=== PATIENT | female | born 1980 | race Caucasian/White ===

== ENCOUNTER 2018-10-31 11:02 | Outpatient (CLI) | payer MEDICAID | END 2018-10-31 23:59 | disposition home or self-care (01) | LOC: CFH 11:02 | PROVIDERS: ATTEND Family Medicine | DX: N64.4 Mastodynia (principal) | CPT/HCPCS: 77066; G0279 ==

== ENCOUNTER → 2019-12-10 | Outpatient (CLI) | payer MEDICAID | END | disposition home or self-care (01) | LOC: CFH 13:52 | PROVIDERS: ATTEND Family Medicine | DX: Z12.31 Encounter for screening mammogram for malignant neoplasm of breast (principal); N63.13 Unspecified lump in the right breast, lower outer quadrant | CPT/HCPCS: 76641; 77063; 77067 ==